=== PATIENT | female | born 1955 ===

== ENCOUNTER 2024-02-14 06:45 | Day surgery (SDC) | payer OTHER, SELFPAY ==
--- NOTE | 2024-02-13 10:56 | PTCARENOTE ---
Patients 02/09 portia- Mike- Catherine @ dr. Chand office notified
[2024-02-14] VITALS (9 sets, daily range): BP systolic 142–163; BP diastolic 69–96; BMI 47.4
[2024-02-14 14:07] LABS: Glucose - Point of Care 95 mg/dl (70-99)
[2024-02-14] MEDS: CELEBREX 200 MG PO (14:07)
[2024-02-14] MEDS: TYLENOL 1000 MG PO (14:07)
[2024-02-14] MEDS: NORMOSOL-R 1000 IV (14:08)
[2024-02-14 16:40] LABS: Glucose - Point of Care 79 mg/dl (70-99)
[2024-02-14 20:17] LABS: Glucose - Point of Care 116 mg/dl (70-99)
[2024-02-14] MEDS: TYLENOL 650 MG PO (21:53)
[2024-02-14] MEDS: ROXICODONE 10 MG PO (21:54)
[2024-02-14] MEDS: LIPITOR 10 MG PO (22:53)
[2024-02-14] MEDS: COLACE PO (22:54)
[2024-02-14] MEDS: SENOKOT PO (22:54)
[2024-02-15] VITALS (7 sets, daily range): BP systolic 143–169; BP diastolic 73–94; PULSE 98; O2SAT 98
--- NOTE | 2024-02-15 02:07 | PTCARENOTE ---
Pt arrived via stretcher from PACU at 2215. Pt AAOX3. Pt drowsy but arouses to verbal stimuli. VSS. Pt on 6 L O2 at 93%. R shoulder Aquacel has moderate drainage. R sling in place. Pt complains of no pain. head to toe assessment complete. bed in
lowest position and locked. call andres with in reach.
[2024-02-15] MEDS: SYNTHROID 100 MCG PO (05:19)
[2024-02-15 06:57] LABS: Hematocrit 29.7 % (37.0-47.0); Hemoglobin 9.9 g/dL (12.0-16.0)
[2024-02-15 07:22] LABS: Blood Urea Nitrogen 16 mg/dl (7-17); Carbon Dioxide 23 mmol/L (22-30); Chloride 101 mmol/L (98-107); Estimated Creatinine Clearance 71 ml/min; Glucose 173 mg/dl (70-99); Potassium 4.6 mmol/L (3.5-5.1); Sodium 132 mmol/L (135-145); eGFR > 60.00
[2024-02-15] MEDS: ROXICODONE 5 MG PO ×2 (08:48→13:27)
[2024-02-15] MEDS: ZESTRIL 40 MG PO (09:30)
[2024-02-15] MEDS: VIBRAMYCIN 100 MG PO (09:30)
[2024-02-15] MEDS: COLACE 100 MG PO (09:30)
[2024-02-15] MEDS: PROTONIX 40 MG PO (09:31)
[2024-02-15] MEDS: VITAMIN D3 (cholecalciferol) 125 MCG PO (09:31)
[2024-02-15] MEDS: SENOKOT 17.2 MG PO (09:31)
[2024-02-15] MEDS: MOBIC 15 MG PO (09:31)
[2024-02-15] MEDS: LOW STRENGTH ASPIRIN 81 MG PO (09:31)
[2024-02-15 09:33] LABS: Glucose - Point of Care 294 mg/dl (70-99)
[2024-02-15] MEDS: NOVOLOG FLEXPEN-MODERATE RESISTANCE 5 UNITS SC (09:33)
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
[2024-02-15] MEDS: NOVOLOG FLEXPEN-MODERATE RESISTANCE SC ×2 (14:29→16:42)
[2024-02-15 16:42] LABS: Glucose - Point of Care 143 mg/dl (70-99)
--- NOTE | 2024-02-15 17:14 | W.DS.TRANS ---
DC Summary - Sales Officer
-
Discharge Instructions:
Sleep Apnea Risk Intermediate
Discharge Diagnosis/Procedures Right reverse total shoulder arthroplasty and
ORIF with Dr. Nunez
Diet No restrictions,As tolerated,Diabetic, Carb
Controlled
Additional Activity Use sling to right upper extremity when active
and sleeping with pillow/bump. May periodically
take rest from the sling when seated. May work
range of motion of the elbow wrist and hand to
avoid stiffness
Driving Restrictions Not until seen by your Dr
Bathing Restrictions OK to Shower
Wound Care Maintain dressing until first postoperative
appointment
Instructions: Shoulder Replacement (DC)
Stand-Alone Forms: Total Shoulder Replacement D/C
Changes to Home Medications: Yes
Discharge Medications:
DC Medications w/original date entered in [employer]
Nervive 1 tab PO DAILY Supplement 02/09/24
Vision 50 1 tab PO DAILY Supplement 02/09/24
Vitamin D3 5,000 unit PO DAILY Supplement 02/09/24
acetaminophen 325 mg tablet (Tylenol) 650 mg PO Q4H PRN pain 02/09/24
benazepril 40 mg tablet 40 mg PO DAILY Blood Pressure 02/09/24
biotin 10,000 mcg capsule 10,000 mcg PO DAILY Supplement 02/09/24
fluticasone propionate 50 mcg/actuation nasal spray,suspension 1 spray intranasal DAILY Congestion 02/09/24
glimepiride 1 mg tablet 1 mg PO DAILY Diabetes 02/09/24
levothyroxine 100 mcg capsule 100 mcg PO DAILY Thyroid 02/09/24
melatonin 10 mg tablet 10 mg PO HS PRN sleep 02/09/24
metformin 850 mg tablet 850 mg PO BID Diabetes 02/09/24
omeprazole 20 mg tablet,delayed release 20 mg PO DAILY Gastrointestinal Issue 02/09/24
potassium 99 mg PO DAILY Electrolyte Repletion 02/09/24
simvastatin 20 mg PO HS High Cholesterol 02/09/24
aspirin 81 mg capsule 81 mg PO DAILY prevent blood clots 30 days #30 caps 02/14/24
doxycycline hyclate 100 mg capsule 100 mg PO BID prevent infection 3 days #6 caps 02/14/24
hydrocodone 5 mg-acetaminophen 325 mg tablet 1 tab PO Q6H PRN Pain #20 tabs 02/14/24
Home Medication Changes
aspirin 81 mg capsule 81 mg PO DAILY prevent blood clots 30 days #30 caps 02/14/24�
doxycycline hyclate 100 mg capsule 100 mg PO BID prevent infection 3 days #6 caps 02/14/24�
hydrocodone 5 mg-acetaminophen 325 mg tablet 1 tab PO Q6H PRN Pain #20 tabs 02/14/24�
Pending Results: No
== END 2024-02-15 18:01 | disposition home or self-care (01) ==
LOC: SDS 06:45
PROVIDERS: Physician Assistant Surgical; ATTENDING PHYSICIAN Orthopaedic Surgery Hand Surgery; FAMILY PHYSICIAN Family Medicine
DX: S42.341A Displaced spiral fracture of shaft of humerus, right arm, initial encounter for closed fracture (principal); X58.XXXA Exposure to other specified factors, initial encounter; M19.011 Primary osteoarthritis, right shoulder
CPT/HCPCS: 23473; 24515; C1776; C1713; 73060; 76000; 80048; 82962; 85014; 85018; 87070; 97166; 97535